=== PATIENT | male | born 1970 | race Caucasian/White ===

== ENCOUNTER 2016-04-25 14:23 | Inpatient (IN) | payer OTHER ==
[2016-04-25 15:40] VITALS: BMI 30.3
--- NOTE | 2016-04-25 18:14 | HP ---
CIWA Score - CIWA Score Nausea/Vomitin-Mild Nausea/No Vomiting Muscle Tremors: 4-Moderate,w/Arms Extend Anxiety: 5 Agitation: 4-Moderately Restless Paroxysmal Sweats: 2 Orientation: 1-Uncertain about Date Tacttile Disturbances: 0-None Auditory Disturbances: 0-None Visual Disturbances: 0-None Headache: 3-Moderate CIWA-Ar Total Score: 20 Admission ROS S - HPI Chief Complaint: WITHDRAWAL SX Allergies/Adverse Reactions: Allergies Allergy/AdvReac Type Severity Reaction Status Date / Time No Known Allergies Allergy Verified 04/25/16 16:50 History of Present Illness: 46 YEARS OLD MALE WITH LONG HISTORY OF ALCOHOL NICOTINE DEPENDENCE DENIES MEDICAL ISSUE DENIES MENTAL ILLNESS IS ADMITTED TO DETOX PATIENT WENT TO [facility] TODAY TREATED WITH LIBRIUM TRANSFERRED TO [facility] Exam Limitations: No Limitations - Ebola screening Have you traveled outside of the country in the last 21 days: No Have you had contact with anyone from an Ebola affected area: No Have you been sick,other than usual withdrawal symptoms: No Do you have a fever: No - Review of Systems Constitutional: Chills, Changes in sleep, Weight Stable EENT: reports: No Symptoms Reported Respiratory: reports: No Symptoms reported Cardiac: reports: No Symptoms Reported GI: reports: Nausea, Poor Fluid Intake, Abdominal cramping : reports: No Symptoms Reported Musculoskeletal: reports: No Symptoms Reported Integumentary: reports: No Symptoms Reported Neuro: reports: Tremors Endocrine: reports: No Symptoms Reported Hematology: reports: No Symptoms Reported Psychiatric: reports: Judgement Intact, Mood/Affect Appropiate Other Systems: Reviewed and Negative Patient History - Patient Medical History Hx Anemia: No Hx Asthma: No Hx Chronic Obstructive Pulmonary Disease (COPD): No Hx Cancer: No Hx Cardiac Disorders: No Hx Congestive Heart Failure: No Hx Hypertension: No Hx Hypercholesterolemia: No Hx Pacemaker: No HX Cerebrovascular Accident: No Hx Seizures: No Hx Dementia: No Hx Diabetes: No Hx Gastrointestinal Disorders: No Hx Liver Disease: No Hx Genitourinary Disorders: No Hx Sexually Transmitted Disorders: No Hx Renal Disease (ESRD): No Hx Thyroid Disease: No Hx Human Immunodeficiency Virus (HIV): No Hx Hepatitis C: No Hx Depression: No Hx Suicide Attempt: No Hx Bipolar Disorder: No Hx Schizophrenia: No - Patient Surgical History Past Surgical History: No Hx Neurologic Surgery: No Hx Cataract Extraction: No Hx Cardiac Surgery: No Hx Lung Surgery: No Hx Breast Surgery: No Hx Breast Biopsy: No Hx Abdominal Surgery: No Hx Appendectomy: No Hx Cholecystectomy: No Hx Genitourinary Surgery: No Hx Orthopedic Surgery: No Anesthesia Reaction: No - PPD History Previous Implant?: Yes Documented Results: Negative w/o proof Implanted On Prior R Admission?: No PPD to be Administered?: Yes - Smoking Cessation Smoking history: Current every day smoker Have you smoked in the past 12 months: Yes Aproximately how many cigarettes per day: 10 Cigars Per Day: 0 Hx Chewing Tobacco Use: No Initiated information on smoking cessation: Yes 'Breaking Loose' booklet given: 04/25/16 - Substance & Tx. History Hx Alcohol Use: Yes Hx Substance Use: No Substance Use Type: Alcohol, Cocaine, Marijuana Hx Substance Use Treatment: Yes - Substances Abused Alcohol Route: Oral Frequency: Daily Amount used: Vodka 1 pint Age of first use: 11 Date of Last Use: 04/25/16 Crack Route: Smoking Frequency: 1-2 times per week Amount used: $100-$200 Age of first use: 15 Date of Last Use: 04/25/16 Marijuana/Hashish Route: Smoking Frequency: 1-3 times last 30 days Amount used: $5 Age of first use: 11 Date of Last Use: 04/25/16 Family Disease History - Family Disease History Family Disease History: Diabetes: Grandparent, Father, Mother Admission Physical Exam BHS - Vital Signs Vital Signs: Vital Signs - 24 hr 04/25/16 15:38 Temperature 97.7 F Pulse Rate 107 H Respiratory 20 Rate Blood Pressure 145/81 - Physical General Appearance: Yes: Nourished, Appropriately Dressed, Moderate Distress, Tremorous, Irritable, Sweating, Anxious HEENTM: Yes: Hearing grossly Normal, Normal ENT Inspection, Normocephalic, Normal Voice Respiratory: Yes: Chest Non-Tender, Lungs Clear, Normal Breath Sounds, No Respiratory Distress, No Accessory Muscle Use Neck: Yes: Supple, Trachea in good position Breast: Yes: Breasts Symetrical Cardiology: Yes: Regular Rhythm, Regular Rate, S1, S2 Abdominal: Yes: Non Tender, Soft, Decreased BS Genitourinary: Yes: Within Normal Limits Back: Yes: Normal Inspection Musculoskeletal: Yes: full range of Motion, Gait Steady, Back pain Extremities: Yes: Normal Inspection, Normal Range of Motion, Non-Tender, Tremors Neurological: Yes: Alert, Motor Strength 5/5, Normal Response, Depressed Affect Integumentary: Yes: Warm, Moist Lymphatic: Yes: Within Normal Limits - Diagnostic (1) Alcohol dependence with uncomplicated withdrawal Current Visit: Yes Status: Acute (2) Nicotine dependence Current Visit: Yes Status: Acute Qualifiers: Nicotine product type: cigarettes Substance use status: in withdrawal Qualified Code(s): F17.213 - Nicotine dependence, cigarettes, with withdrawal (3) Hypertension Current Visit: Yes Status: Acute Qualifiers: Hypertension type: other secondary hypertension Qualified Code(s): I15.8 - Other secondary hypertension Comment: ALCOHOL WITHDRAWAL RELATED CLONIDINE (4) Bipolar II disorder Current Visit: Yes Status: Suspected Comment: TREE Cleared for Admission [facility] - Detox or Rehab [facility] Level of Care: Medically Managed Detox Regimen/Protocol: Librium [facility] Breath Alcohol Content Breath Alcohol Content: 0 Urine Drug Screen - Results Drug Screen Negative: No Urine Drug Screen Results: AUGUSTINE-Cocaine
[2016-04-25] MEDS ORDERED: MAGNESIUM HYDROX 2400MG/30ML ORAL SUSPENSION 30 ML CUP PO PRN (18:16)
[2016-04-25] MEDS ORDERED: NICOTINE POLACRILEX 2 MG GUM BC PRN (18:16)
[2016-04-25] MEDS ORDERED: ACETAMINOPHEN 325 MG TABLET (FP) PO PRN (18:16)
[2016-04-25] MEDS ORDERED: LOPERAMIDE HCL 2 MG CAPSULE PO PRN (18:16)
[2016-04-25] MEDS ORDERED: hydrOXYzine PAMOATE 50 MG CAPSULE (FP) PO PRN (18:16)
[2016-04-25] MEDS ORDERED: diphenhydrAMINE HCL 50 MG CAPSULE PO PRN (18:16)
[2016-04-25] MEDS ORDERED: IBUPROFEN 400 MG TABLET (FP) PO PRN (18:16)
[2016-04-25] MEDS ORDERED: MAGNESIUM CITRATE 300 ML BOTTLE PO PRN (18:16)
[2016-04-25] MEDS ORDERED: MENTHOL/PHENOL 1 EACH UD MM PRN (18:16)
[2016-04-25] MEDS ORDERED: MAG HYDROX/AL HYDROX/SIMETH 30 ML UNIT-DOSE CUP PO PRN (18:16)
[2016-04-25] MEDS ORDERED: chlordiazePOXIDE HCL 25 MG CAPSULE PO PRN (18:16)
[2016-04-25] MEDS ORDERED: P-EPHED 60MG/TRIPROLIDI 2.5MG TABLET PO PRN (18:16)
[2016-04-25] MEDS ORDERED: CYCLOBENZAPRINE HCL 10 MG TABLET (FP) PO PRN (18:19)
[2016-04-25] MEDS ORDERED: cloNIDine HCL 0.1 MG TABLET PO PRN (18:19)
[2016-04-25] MEDS ORDERED: chlordiazePOXIDE HCL 25 MG CAPSULE PO ONE (18:45)
[2016-04-25] MEDS: guaiFENesin/D-METHORPHAN HB 10 ML UNIT-DOSE CUPS PO PRN (22:15)
[2016-04-25] MEDS: chlordiazePOXIDE HCL 25 MG CAPSULE PO SCH (22:15)
[2016-04-25] MEDS: THIAMINE HCL 100 MG TABLET (FP) PO SCH (22:15)
[2016-04-25 23:19] LABS: URINE APPEARANCE CLEAR; URINE BILIRUBIN NEGATIVE (NEGATIVE); URINE BLOOD NEGATIVE (NEGATIVE); URINE COLOR YELLOW; URINE GLUCOSE (UA) NEGATIVE (NEGATIVE); URINE KETONE 1+ (NEGATIVE); URINE LEUK ESTERASE NEGATIVE (NEGATIVE); URINE NITRITE NEGATIVE (NEGATIVE); URINE UROBILINOGEN NEGATIVE E.U./dl (0.2-1.0)
[2016-04-25 23:32] LABS: URINE PROTEIN 1+ (NEGATIVE)
[2016-04-25 23:36] LABS: URINE MUCUS MANY; URINE RBC <1 /hpf (0-3); URINE WBC 7 /hpf (3-5)
[2016-04-26] MEDS: chlordiazePOXIDE HCL 25 MG CAPSULE PO SCH ×4 (05:40→22:31)
--- NOTE | 2016-04-26 08:31 | CONSULT ---
[facility] Psychiatric Consult - Data Date of interview: 04/26/16 Admission source: [facility] Identifying data: This is 46 years old male with no psychiatric hospitalization history intoxicated with: Alcohol and Nicotine Substance Abuse History: Smoking history: Current every day smoker. Have you smoked in the past 12 months: Yes. Aproximately how many cigarettes per day: 10. Cigars Per Day: 0. Hx Chewing Tobacco Use: No. Initiated information on smoking cessation: Yes. 'Breaking Loose' booklet given: 04/25/16. - Substance & Tx. History. Hx Alcohol Use: Yes. Hx Substance Use: No. Substance Use Type : Alcohol, Cocaine, Marijuana. Hx Substance Use Treatment: Yes. - Substances Abused. Alcohol. Route: Oral. Frequency: Daily. Amount used: Vodka 1 pint. Age of first use: 11. Date of Last Use: 04/25/16. Crack. Route: Smoking. Frequency: 1-2 times per week. Amount used: $100-$200. Age of first use: 15. Date of Last Use: 04/25/16. Marijuana/Hashish. Route: Smoking. Frequency: 1-3 times last 30 days. Amount used: $5. Age of first use: 11. Date of Last Use: 04/25/16 Medical History: HTN Psychiatric History: PATIENT REPORTS HISTORY OF ANXIETY AND INSOMNIA, REPORTS TAKING PRIOR TO ADMISSION: AMBIEN 10MG PO QHS Physical/Sexual Abuse/Trauma History: Denies Additional Comment: Ambien 10mg po qhs prn Mental Status Exam - Mental Status Exam Alert and Oriented to: Person Cognitive Function: Fair Patient Appearance: Well Groomed Mood: Euthymic Affect: Mood Congruent Patient Behavior: Cooperative Speech Pattern: Appropriate Voice Loudness: Normal Thought Process: Goal Oriented Thought Disorder: Being Controlled Hallucinations: Denies Suicidal Ideation: Denies Homicidal Ideation: Denies Insight/Judgement: Fair Sleep: Difficulty falling asleep Appetite: Weight gain Muscle strength/Tone: Normal Gait/Station: Normal Additional Comments: Ambien 10mg po qhs prn Psychiatric Findings - Problem List (Solen 1, 2,3) (1) Alcohol dependence with uncomplicated withdrawal Current Visit: Yes Status: Acute (2) Nicotine dependence Current Visit: Yes Status: Acute Qualifiers: Nicotine product type: cigarettes Substance use status: in withdrawal Qualified Code(s): F17.213 - Nicotine dependence, cigarettes, with withdrawal (3) Bipolar II disorder Current Visit: Yes Status: Suspected Comment: TREE (4) Drug-induced mood disorder Current Visit: Yes Status: Acute - Initial Treatment Plan Initial Treatment Plan: Ambien 10mg po qhs prn
[2016-04-26 09:54] LABS: MCH 32.6 pg (25.7-33.7); MCHC 33.9 g/dl (32.0-35.9); MEAN CELL VOLUME 95.9 fl (80-96); MEAN PLT VOLUME 9.9 fl (7.5-11.1); PLATELET COUNT 157 K/MM3 (134-434); RDW 13.3 % (11.9-15.9)
[2016-04-26] MEDS: PRENATAL VITAMINS W/ FOLIC ACID TABLET (FP) PO SCH (10:07)
[2016-04-26] MEDS: NICOTINE 14 MG/24 HOURS TOPICAL PATCH TD SCH (10:08)
--- NOTE | 2016-04-26 10:15 | PN ---
S CIWA - CIWA Score Nausea/Vomitin-Mild Nausea/No Vomiting Muscle Tremors: 4-Moderate,w/Arms Extend Anxiety: 3 Agitation: 4-Moderately Restless Paroxysmal Sweats: 3 Orientation: 0-Oriented Tacttile Disturbances: 0-None Auditory Disturbances: 0-None Visual Disturbances: 0-None Headache: 1-Very Mild CIWA-Ar Total Score: 16 BHS Progress Note (SOAP) Subjective: headache sweats shakes interrupted sleep Objective: 04/26/16 10:14 Vital Signs Temperature 98.1 F 04/26/16 09:42 Pulse Rate 101 H 04/26/16 09:42 Respiratory Rate 16 04/26/16 09:42 Blood Pressure 138/91 04/26/16 09:42 O2 Sat by Pulse Oximetry (%) Laboratory Tests 04/25/16 04/26/16 19:50 07:20 WBC 7.0 RBC 4.66 Hgb 15.2 Hct 44.7 MCV 95.9 MCHC 33.9 RDW 13.3 Plt Count 157 MPV 9.9 Urine Color Yellow Urine Appearance Clear Urine pH 5.0 Ur Specific [employer] 1.031 Urine Protein 1+ H Urine Glucose (UA) Negative Urine Ketones 1+ H Urine Blood Negative Urine Nitrite Negative Urine Bilirubin Negative Urine Urobilinogen Negative Ur Leukocyte Esterase Negative Urine RBC <1 Urine WBC 7 Urine Mucus Many labs pending awake/alert ambulating no acute distress Assessment: 04/26/16 10:14 withdrawal sx Plan: continue detox increase fluids labs pending tylenol/motrin prn
[2016-04-26] MEDS ORDERED: cloNIDine HCL 0.1 MG TABLET PO ONE (10:23)
[2016-04-26 10:31] LABS: ALBUMIN 3.1 g/dl (3.4-5.0); ALK PHOS 115 U/L (45-117); ANION GAP 8 (8-16); BILIRUBIN,TOTAL 0.5 mg/dL (0.2-1.0); CALCIUM 8.2 mg/dL (8.5-10.1); CO2 27 mmol/L (21-32); CREATININE 0.8 mg/dL (0.7-1.3); GLUCOSE,RANDOM 92 mg/dL (74-106); SGOT/AST 30 U/L (15-37); SGPT/ALT 46 U/L (12-78); TOT PROT 5.5 g/dl (6.4-8.2)
--- NOTE | 2016-04-26 15:06 | EKG ---
Test Reason : Blood Pressure : / mmHG Vent. Rate : 092 BPM Atrial Rate : 092 BPM P-R Int : 176 ms QRS Dur : 088 ms QT Int : 326 ms P-R-T Axes : 044 025 011 degrees QTc Int : 403 ms NORMAL SINUS RHYTHM NORMAL ECG NO PREVIOUS ECGS AVAILABLE Confirmed by JONATHAN WILKINS MD ([id number]) on 04/26/2016 3:06:09 PM Referred By: Confirmed By:JONATHAN WILKINS MD
[2016-04-26] MEDS: THIAMINE HCL 100 MG TABLET (FP) PO SCH (22:31)
[2016-04-26] MEDS: ZOLPIDEM TARTRATE 10 MG TABLET (PARK CARE ONLY) PO PRN (22:33)
[2016-04-27] MEDS: chlordiazePOXIDE HCL 25 MG CAPSULE PO SCH ×3 (05:39→17:38)
--- NOTE | 2016-04-27 08:50 | PN ---
S CIWA - CIWA Score Nausea/Vomitin Muscle Tremors: 3 Anxiety: 2 Agitation: 2 Paroxysmal Sweats: 1-Minimal Palms Moist Orientation: 0-Oriented Tacttile Disturbances: 1-Very Mild Itch/Numbness Auditory Disturbances: 1-Very Mild Visual Disturbances: 1-Very Mild Sensitivity Headache: 2-Mild CIWA-Ar Total Score: 16 S Progress Note (SOAP) Subjective: ALERT,IRRITABLE,ANXIOUS,INTERRUPTED SLEEP,TREMOR Objective: 04/27/16 08:49 Vital Signs Temperature 97.5 F L 04/27/16 06:30 Pulse Rate 60 04/27/16 06:30 Respiratory Rate 16 04/27/16 06:30 Blood Pressure 109/60 04/27/16 06:30 O2 Sat by Pulse Oximetry (%) Laboratory Last Values WBC 7.0 K/mm3 (4.0-10.0) 04/26/16 07:20 RBC 4.66 M/mm3 (4.00-5.60) 04/26/16 07:20 Hgb 15.2 GM/dL (11.7-16.9) 04/26/16 07:20 Hct 44.7 % (35.4-49) 04/26/16 07:20 MCV 95.9 fl (80-96) 04/26/16 07:20 MCHC 33.9 g/dl (32.0-35.9) 04/26/16 07:20 RDW 13.3 % (11.9-15.9) 04/26/16 07:20 Plt Count 157 K/MM3 (134-434) 04/26/16 07:20 MPV 9.9 fl (7.5-11.1) 04/26/16 07:20 Sodium 143 mmol/L (136-145) 04/26/16 07:20 Potassium 4.1 mmol/L (3.5-5.1) 04/26/16 07:20 Chloride 108 mmol/L (98-107) H 04/26/16 07:20 Carbon Dioxide 27 mmol/L (21-32) 04/26/16 07:20 Anion Gap 8 (8-16) 04/26/16 07:20 BUN 14 mg/dL (7-18) 04/26/16 07:20 Creatinine 0.8 mg/dL (0.7-1.3) 04/26/16 07:20 Creat Clearance w eGFR > 60 (>60) 04/26/16 07:20 Random Glucose 92 mg/dL (74-106) 04/26/16 07:20 Calcium 8.2 mg/dL (8.5-10.1) L 04/26/16 07:20 Total Bilirubin 0.5 mg/dL (0.2-1.0) 04/26/16 07:20 AST 30 U/L (15-37) 04/26/16 07:20 ALT 46 U/L (12-78) 04/26/16 07:20 Alkaline Phosphatase 115 U/L (45-117) 04/26/16 07:20 Total Protein 5.5 g/dl (6.4-8.2) L 04/26/16 07:20 Albumin 3.1 g/dl (3.4-5.0) L 04/26/16 07:20 Urine Color Yellow 04/25/16 19:50 Urine Appearance Clear 04/25/16 19:50 Urine pH 5.0 (5.0-8.0) 04/25/16 19:50 Ur Specific [place] 1.031 (1.001-1.035) 04/25/16 19:50 Urine Protein 1+ (NEGATIVE) H 04/25/16 19:50 Urine Glucose (UA) Negative (NEGATIVE) 04/25/16 19:50 Urine Ketones 1+ (NEGATIVE) H 04/25/16 19:50 Urine Blood Negative (NEGATIVE) 04/25/16 19:50 Urine Nitrite Negative (NEGATIVE) 04/25/16 19:50 Urine Bilirubin Negative (NEGATIVE) 04/25/16 19:50 Urine Urobilinogen Negative E.U./dl (0.2-1.0) 04/25/16 19:50 Ur Leukocyte Esterase Negative (NEGATIVE) 04/25/16 19:50 Urine RBC <1 /hpf (0-3) 04/25/16 19:50 Urine WBC 7 /hpf (3-5) 04/25/16 19:50 Urine Mucus Many 04/25/16 19:50 RPR Titer Nonreactive (NONREACTIVE) 04/26/16 07:20 Hepatitis C Antibody <0.1 s/co ratio (0.0-0.9) 04/26/16 07:20 Assessment: 04/27/16 08:49 WITHDRAWAL SYMPTOM Plan: CONTINUE DETOX
[2016-04-27] MEDS: PRENATAL VITAMINS W/ FOLIC ACID TABLET (FP) PO SCH (10:11)
[2016-04-27] MEDS: NICOTINE 14 MG/24 HOURS TOPICAL PATCH TD SCH (10:11)
[2016-04-27] MEDS: guaiFENesin/D-METHORPHAN HB 10 ML UNIT-DOSE CUPS PO PRN (17:38)
[2016-04-27] MEDS: THIAMINE HCL 100 MG TABLET (FP) PO SCH (22:31)
[2016-04-27] MEDS: chlordiazePOXIDE 5 MG CAPSULE PO SCH (22:31)
[2016-04-27] MEDS: ZOLPIDEM TARTRATE 10 MG TABLET (PARK CARE ONLY) PO PRN (22:33)
[2016-04-28] MEDS: chlordiazePOXIDE 5 MG CAPSULE PO SCH ×3 (05:21→18:04)
[2016-04-28] MEDS: PRENATAL VITAMINS W/ FOLIC ACID TABLET (FP) PO SCH (10:09)
[2016-04-28] MEDS: NICOTINE 14 MG/24 HOURS TOPICAL PATCH TD SCH (10:09)
--- NOTE | 2016-04-28 10:25 | PN ---
S Progress Note (SOAP) Subjective: Mild irritability and restlessness Objective: 04/28/16 10:23 Laboratory Last Values WBC 7.0 K/mm3 (4.0-10.0) 04/26/16 07:20 RBC 4.66 M/mm3 (4.00-5.60) 04/26/16 07:20 Hgb 15.2 GM/dL (11.7-16.9) 04/26/16 07:20 Hct 44.7 % (35.4-49) 04/26/16 07:20 MCV 95.9 fl (80-96) 04/26/16 07:20 MCHC 33.9 g/dl (32.0-35.9) 04/26/16 07:20 RDW 13.3 % (11.9-15.9) 04/26/16 07:20 Plt Count 157 K/MM3 (134-434) 04/26/16 07:20 MPV 9.9 fl (7.5-11.1) 04/26/16 07:20 Sodium 143 mmol/L (136-145) 04/26/16 07:20 Potassium 4.1 mmol/L (3.5-5.1) 04/26/16 07:20 Chloride 108 mmol/L (98-107) H 04/26/16 07:20 Carbon Dioxide 27 mmol/L (21-32) 04/26/16 07:20 Anion Gap 8 (8-16) 04/26/16 07:20 BUN 14 mg/dL (7-18) 04/26/16 07:20 Creatinine 0.8 mg/dL (0.7-1.3) 04/26/16 07:20 Creat Clearance w eGFR > 60 (>60) 04/26/16 07:20 Random Glucose 92 mg/dL (74-106) 04/26/16 07:20 Calcium 8.2 mg/dL (8.5-10.1) L 04/26/16 07:20 Total Bilirubin 0.5 mg/dL (0.2-1.0) 04/26/16 07:20 AST 30 U/L (15-37) 04/26/16 07:20 ALT 46 U/L (12-78) 04/26/16 07:20 Alkaline Phosphatase 115 U/L (45-117) 04/26/16 07:20 Total Protein 5.5 g/dl (6.4-8.2) L 04/26/16 07:20 Albumin 3.1 g/dl (3.4-5.0) L 04/26/16 07:20 Urine Color Yellow 04/25/16 19:50 Urine Appearance Clear 04/25/16 19:50 Urine pH 5.0 (5.0-8.0) 04/25/16 19:50 Ur Specific [place] 1.031 (1.001-1.035) 04/25/16 19:50 Urine Protein 1+ (NEGATIVE) H 04/25/16 19:50 Urine Glucose (UA) Negative (NEGATIVE) 04/25/16 19:50 Urine Ketones 1+ (NEGATIVE) H 04/25/16 19:50 Urine Blood Negative (NEGATIVE) 04/25/16 19:50 Urine Nitrite Negative (NEGATIVE) 04/25/16 19:50 Urine Bilirubin Negative (NEGATIVE) 04/25/16 19:50 Urine Urobilinogen Negative E.U./dl (0.2-1.0) 04/25/16 19:50 Ur Leukocyte Esterase Negative (NEGATIVE) 04/25/16 19:50 Urine RBC <1 /hpf (0-3) 04/25/16 19:50 Urine WBC 7 /hpf (3-5) 04/25/16 19:50 Urine Mucus Many 04/25/16 19:50 RPR Titer Nonreactive (NONREACTIVE) 04/26/16 07:20 Hepatitis C Antibody <0.1 s/co ratio (0.0-0.9) 04/26/16 07:20 Labs noted Vital Signs - 8 hr 04/28/16 04/28/16 03:30 06:00 Temperature 97.9 F Pulse Rate 72 Respiratory 19 18 Rate Blood Pressure 134/75 Assessment: 04/28/16 10:24 resolving withdrawal sx Plan: continue detox
[2016-04-28] MEDS: guaiFENesin/D-METHORPHAN HB 10 ML UNIT-DOSE CUPS PO PRN (18:05)
[2016-04-28] MEDS: THIAMINE HCL 100 MG TABLET (FP) PO SCH (22:05)
[2016-04-28] MEDS: chlordiazePOXIDE HCL 10 MG CAPSULE PO SCH (22:05)
[2016-04-28] MEDS: ZOLPIDEM TARTRATE 10 MG TABLET (PARK CARE ONLY) PO PRN (22:07)
[2016-04-29] MEDS: chlordiazePOXIDE HCL 10 MG CAPSULE PO SCH ×2 (05:38→10:57)
--- NOTE | 2016-04-29 09:31 | DS ---
[facility] Detox Discharge Summary Admission Date: 04/25/16 Discharge Date: 04/29/16 - History Present History: Alcohol Dependence, Cannabis Dependence, Cocaine Dependence - Physical Exam Results Vital Signs: Vital Signs Temperature 97.9 F 04/29/16 06:00 Pulse Rate 88 04/29/16 06:00 Respiratory Rate 18 04/29/16 06:30 Blood Pressure 137/76 04/29/16 06:00 O2 Sat by Pulse Oximetry (%) Laboratory Last Values WBC 7.0 K/mm3 (4.0-10.0) 04/26/16 07:20 RBC 4.66 M/mm3 (4.00-5.60) 04/26/16 07:20 Hgb 15.2 GM/dL (11.7-16.9) 04/26/16 07:20 Hct 44.7 % (35.4-49) 04/26/16 07:20 MCV 95.9 fl (80-96) 04/26/16 07:20 MCHC 33.9 g/dl (32.0-35.9) 04/26/16 07:20 RDW 13.3 % (11.9-15.9) 04/26/16 07:20 Plt Count 157 K/MM3 (134-434) 04/26/16 07:20 MPV 9.9 fl (7.5-11.1) 04/26/16 07:20 Sodium 143 mmol/L (136-145) 04/26/16 07:20 Potassium 4.1 mmol/L (3.5-5.1) 04/26/16 07:20 Chloride 108 mmol/L (98-107) H 04/26/16 07:20 Carbon Dioxide 27 mmol/L (21-32) 04/26/16 07:20 Anion Gap 8 (8-16) 04/26/16 07:20 BUN 14 mg/dL (7-18) 04/26/16 07:20 Creatinine 0.8 mg/dL (0.7-1.3) 04/26/16 07:20 Creat Clearance w eGFR > 60 (>60) 04/26/16 07:20 Random Glucose 92 mg/dL (74-106) 04/26/16 07:20 Calcium 8.2 mg/dL (8.5-10.1) L 04/26/16 07:20 Total Bilirubin 0.5 mg/dL (0.2-1.0) 04/26/16 07:20 AST 30 U/L (15-37) 04/26/16 07:20 ALT 46 U/L (12-78) 04/26/16 07:20 Alkaline Phosphatase 115 U/L (45-117) 04/26/16 07:20 Total Protein 5.5 g/dl (6.4-8.2) L 04/26/16 07:20 Albumin 3.1 g/dl (3.4-5.0) L 04/26/16 07:20 Urine Color Yellow 04/25/16 19:50 Urine Appearance Clear 04/25/16 19:50 Urine pH 5.0 (5.0-8.0) 04/25/16 19:50 Ur Specific [place] 1.031 (1.001-1.035) 04/25/16 19:50 Urine Protein 1+ (NEGATIVE) H 04/25/16 19:50 Urine Glucose (UA) Negative (NEGATIVE) 04/25/16 19:50 Urine Ketones 1+ (NEGATIVE) H 04/25/16 19:50 Urine Blood Negative (NEGATIVE) 04/25/16 19:50 Urine Nitrite Negative (NEGATIVE) 04/25/16 19:50 Urine Bilirubin Negative (NEGATIVE) 04/25/16 19:50 Urine Urobilinogen Negative E.U./dl (0.2-1.0) 04/25/16 19:50 Ur Leukocyte Esterase Negative (NEGATIVE) 04/25/16 19:50 Urine RBC <1 /hpf (0-3) 04/25/16 19:50 Urine WBC 7 /hpf (3-5) 04/25/16 19:50 Urine Mucus Many 04/25/16 19:50 RPR Titer Nonreactive (NONREACTIVE) 04/26/16 07:20 Hepatitis C Antibody <0.1 s/co ratio (0.0-0.9) 04/26/16 07:20 labs noted Pertinent Admission Physical Exam Findings: Withdrawal Symptoms - Treatment Hospital Course: Detox Protocol Followed, Detoxed Safely, Responded well, Discharged Condition Good - Medication Discharge Medications: Ambulatory Orders Aripiprazole [Abilify -] 5 mg PO HS 04/25/16 - Diagnosis (1) Alcohol dependence with uncomplicated withdrawal Current Visit: Yes Status: Acute (2) Drug-induced mood disorder Current Visit: Yes Status: Acute (3) Hypertension Current Visit: Yes Status: Acute Qualifiers: Hypertension type: other secondary hypertension Qualified Code(s): I15.8 - Other secondary hypertension (4) Nicotine dependence Current Visit: Yes Status: Acute Qualifiers: Nicotine product type: cigarettes Substance use status: in withdrawal Qualified Code(s): F17.213 - Nicotine dependence, cigarettes, with withdrawal (5) Bipolar II disorder Current Visit: Yes Status: Suspected - AMA Did Patient Leave Against Medical Advice: No
[2016-04-29 10:05] VITALS: TEMP 97.7
[2016-04-29] MEDS: NICOTINE 14 MG/24 HOURS TOPICAL PATCH TD SCH (10:57)
[2016-04-29] MEDS: PRENATAL VITAMINS W/ FOLIC ACID TABLET (FP) PO SCH (10:57)
[2016-04-29 14:22] VITALS: BP 132/94; PULSE 108
== END 2016-04-29 14:50 | disposition other institution (70) | DRG 775 ==
LOC: YASAS 14:23 → Y6N 18:33
PROVIDERS: ADMIT Internal Medicine Addiction Medicine; ATTEND Internal Medicine Addiction Medicine
PROC: HZ2ZZZZ Detoxification Services for Substance Abuse Treatment (ICD-10-PCS; principal; 2016-04-29)
DX: F10.230 Alcohol dependence with withdrawal, uncomplicated (principal); F17.213 Nicotine dependence, cigarettes, with withdrawal; F19.24 Other psychoactive substance dependence with psychoactive substance-induced mood disorder; F31.81 Bipolar II disorder; I15.8 Other secondary hypertension; Z59.0 Homelessness
CPT/HCPCS: 36415; 80053; 81003; 81015; 85027; 86593; 93005; 93010

== ENCOUNTER 2016-04-29 14:54 | Inpatient (IN) | payer OTHER ==
[2016-04-29 15:14] VITALS: BMI 29.5
[2016-04-29] MEDS ORDERED: MENTHOL/PHENOL 1 EACH UD MM PRN (15:28)
[2016-04-29] MEDS ORDERED: guaiFENesin/D-METHORPHAN HB 10 ML UNIT-DOSE CUPS PO PRN (15:28)
[2016-04-29] MEDS ORDERED: P-EPHED 60MG/TRIPROLIDI 2.5MG TABLET PO PRN (15:28)
[2016-04-29] MEDS ORDERED: MAGNESIUM CITRATE 300 ML BOTTLE PO PRN (15:28)
[2016-04-29] MEDS ORDERED: IBUPROFEN 400 MG TABLET (FP) PO PRN (15:28)
[2016-04-29] MEDS ORDERED: ACETAMINOPHEN 325 MG TABLET (FP) PO PRN (15:28)
[2016-04-29] MEDS ORDERED: LOPERAMIDE HCL 2 MG CAPSULE PO PRN (15:28)
[2016-04-29] MEDS ORDERED: NICOTINE POLACRILEX 2 MG GUM BUC PRN (15:28)
[2016-04-29] MEDS ORDERED: MAGNESIUM HYDROX 2400MG/30ML ORAL SUSPENSION 30 ML CUP PO PRN (15:28)
[2016-04-29] MEDS ORDERED: diphenhydrAMINE HCL 50 MG CAPSULE PO PRN (15:28)
[2016-04-29] MEDS ORDERED: MAG HYDROX/AL HYDROX/SIMETH 30 ML UNIT-DOSE CUP PO PRN (15:28)
--- NOTE | 2016-04-29 15:31 | HP ---
[facility] Rehab Assess/Revision - Admission History Date of Admission to Rehab: 04/29/16 - Vital signs Vital Signs: Vital Signs Period Temp Pulse Resp BP Sys/Hernandez Pulse Ox Last 24 Hr 98.2 F-98.2 F 112-112 20-20 129-129/80-80 - Findings Detox History & Physical reviewed: Yes Concur with findings: Yes
[2016-04-29] MEDS: THIAMINE HCL 100 MG TABLET (FP) PO SCH (22:01)
[2016-04-30 06:49] VITALS: BP 125/83; PULSE 79; TEMP 97.3
[2016-04-30] MEDS ORDERED: NICOTINE 21 MG/24 HOURS TOPICAL PATCH TD SCH (10:00)
[2016-04-30] MEDS ORDERED: PRENATAL VITAMINS W/ FOLIC ACID TABLET (FP) PO SCH (10:00)
--- NOTE | 2016-04-30 16:23 | PN ---
Psychiatric Progress Note Vital Signs: Vital Signs Period Temp Pulse Resp BP Sys/Hernandez Pulse Ox Last 24 Hr 97.3 F 79 18-18 125/83 Date of Session: 04/30/16 Chief Complaint:: Admission/Discharge visit HPI: Case of a 46 y/o male admitted to [address] on 04/29/16 after completion of detox care at [address] [place] [address].He had come to [facility] to address issues of alcohol,cocaine and cannabis dependence.Mr Rosenberg changes his mind about his treatment and decides to leave this program today 04/30/16. ROS: Unremarkable.No complaints offered.Patient is ambulatory.Alert and fully oriented.Comfortable. Current Medications: Active Medications Generic Name Dose Route Start Last Admin Trade Name Freq PRN Reason Stop Dose Admin Acetaminophen 650 mg 04/29/16 15:28 04/30/16 15:03 Tylenol - PO 650 mg Q4H PRN Administration FEVER OR PAIN Al Hydroxide/Mg Hydroxide 30 ml 04/29/16 15:28 Mylanta Oral Suspension - PO Q6H PRN DYSPEPSIA Diphenhydramine HCl 50 mg 04/29/16 15:28 04/29/16 22:01 Benadryl - PO 50 mg HSMR1 PRN Administration FOR ITCHING Eucalyptus/Menthol/Phenol/Sorbitol 1 each 04/29/16 15:28 Cepastat Lozenge - MM Q4H PRN SORE THROAT Guaifenesin 10 ml 04/29/16 15:28 04/29/16 22:03 Robitussin Dm - PO 10 ml Q6H PRN Administration COUGH Ibuprofen 400 mg 04/29/16 15:28 Motrin - PO Q6H PRN PAIN Loperamide HCl 4 mg 04/29/16 15:28 Imodium - PO Q6H PRN DIARRHEA Magnesium Citrate 300 ml 04/29/16 15:28 Citroma - PO 05/01/16 15:29 Q48H PRN CONSTIPATION Magnesium Hydroxide 30 ml 04/29/16 15:28 Milk Of Magnesia - PO DAILY PRN CONSTIPATION Nicotine 21 mg 04/30/16 10:00 04/30/16 10:06 Nicoderm Patch - TD 21 mg DAILY WESLEY Administration Nicotine Polacrilex 2 mg 04/29/16 15:28 Nicorette Gum - BUC Q2H PRN NICOTINE REPLACEMENT RX Multivit/Folic Acid/Iron 1 tab 04/30/16 10:00 04/30/16 10:05 Vitamins (Sjr) - PO 1 tab DAILY WESLEY Administration Pseudoephedrine/Triprolidine 1 combo 04/29/16 15:28 Actifed - PO TID PRN NASAL CONGESTION Thiamine HCl 100 mg 04/29/16 22:00 04/29/16 22:01 Vitamin B1 - PO 100 mg HS WESLEY Administration Medication(s) Change(s): None.No script needed for this discharge.On , the patient was only on zolpidem.No complaint of insomnia. Current Side Effect: No Lab tests ordered: No Lab tests reviewed: Yes Provider note:: Called to evaluate this patient who requests immediate discharge from the facility.Chart reviewed.Detox progress notes,including Dr Wayne's note, are appreciated.Met with the patient to explore his reasons.Mr Rosenberg indicates that serious personal issues warrant his immediate attention ( legal matters,other outpatient committments).He states that he has to follow the stringent guidelines of his probation status and deferring rehabilitation at this time appears to be the most reasonable option.Patient endorses a comprehensive aftercare network (already in place).He plans to maintain contact with his hospital chief financial officer and keep adherence to his outpatient program,[facility], in the [place].Mr Rosenberg denies prior history of psychiatric hospitalizations.No history of suicide attempts.He denies being on psychotropic medications at this time.Hospital course is uneventful.Patient is at his baseline.His reasons for terminating rehabilitation care are legitimate.Mr Rosenberg exhibits good judgment by transitioning to outpatient care in an effort to reconcile all his committments.Mental status is stable (see report).No acute medical issues.The patient is not a danger to self or others.He is discharged at his request,on this date 04/30/16.Discussed with addiction social worker Tylor Schultz. Total face to face time:: 35 Mental Status Exam - Mental Status Exam Alert and Oriented to: Time, Place, Person Cognitive Function: Good Patient Appearance: Well Groomed Mood: Hopeful, Euthymic Affect: Appropriate, Normal Range Patient Behavior: Appropriate, Cooperative (friendly and well-mannered) Speech Pattern: Clear, Appropriate Voice Loudness: Normal Thought Process: Intact, Goal Oriented Thought Disorder: Not Present Hallucinations: Denies Suicidal Ideation: Denies Homicidal Ideation: Denies Insight/Judgement: Fair Sleep: Well Appetite: Good Muscle strength/Tone: Normal Gait/Station: Normal Psychiatric Treatment Plan - Problem List (1) Alcohol dependence Current Visit: Yes (2) Nicotine dependence Current Visit: Yes Qualifiers: Nicotine product type: cigarettes Substance use status: in withdrawal Qualified Code(s): F17.213 - Nicotine dependence, cigarettes, with withdrawal (3) Cocaine dependence Current Visit: Yes (4) Drug-induced mood disorder Current Visit: Yes (5) Hypertension Current Visit: No Qualifiers: Hypertension type: other secondary hypertension Qualified Code(s): I15.8 - Other secondary hypertension Comment: ALCOHOL WITHDRAWAL RELATED CLONIDINE
[2016-04-30] MEDS: THIAMINE HCL 100 MG TABLET (FP) PO SCH (22:07)
== END 2016-04-30 16:45 | disposition left against medical advice (07) | DRG 770 ==
LOC: YASAS 14:54 → Y3W 15:03
PROVIDERS: ADMIT Psychiatry & Neurology Psychiatry; ATTEND Psychiatry & Neurology Psychiatry
PROC: HZ42ZZZ Group Counseling for Substance Abuse Treatment, Cognitive-Behavioral (ICD-10-PCS; principal; 2016-04-30)
DX: F10.20 Alcohol dependence, uncomplicated (principal); F14.20 Cocaine dependence, uncomplicated; F17.213 Nicotine dependence, cigarettes, with withdrawal; F19.24 Other psychoactive substance dependence with psychoactive substance-induced mood disorder; I10 Essential (primary) hypertension; Z59.0 Homelessness